=== PATIENT | female | born 1970 | race Caucasian/White ===

== ENCOUNTER 2019-12-01 13:41 | Emergency (ER) | payer SELFPAY ==
[~2019-12-01] VITALS: Ht 160 cm; Wt 76.4 kg
--- NOTE | 2019-12-01 14:03 | Diagnostic Imaging Report ---
Indication: Abdominal swelling and cirrhosis. Time of exam: 1:52 PM No prior studies are available for comparison. The heart size is normal. The pulmonary vascularity is unremarkable. The lungs are clear. No infiltrate, effusion or pneumothorax is detected. Impression: No acute cardiopulmonary process is detected. Dictated by: Dictated on workstation # [id number]
--- NOTE | 2019-12-01 14:04 | ED General ---
General Chief Complaint: General Problems/Pain Stated Complaint: ABD SWELLING Source of Information: Patient, Caregiver, Family, RN/MD, RN Notes Reviewed Exam Limitations: No Limitations History of Present Illness Date Seen by Provider: Dec 01, 2019 Time Seen by Provider: 13:45 Initial Comments This patient is a 49-year-old female that presents to the emergency department after being seen in local clinic for abdominal pain and swelling with ascites. And jaundice. Patient had labs in the clinic this returned is abnormal. Patient reportedly had a sodium level of 114. Discussed at length with patient she states that she's been a long-time drinker of beer and occasional shots with the beer. Patient noticed abdominal swelling over the past couple weeks started having discomfort this morning. We'll do medical evaluation treatment is needed Timing/Duration: 1 Week Associated Systoms: No Denies Symptoms, No Chest Pain, No Cough, No Diaphoresis, No Fever/Chills, No Headaches; Loss of Appetite; No Malaise, No Nausea/Vomiting, No Rash, No Seizure, No Shortness of Air, No Syncope, No Weakness, No Other Allergies and Home Medications Allergies Coded Allergies: No Known Drug Allergies (Unverified , 12/01/19) Patient Home Medication List Home Medication List Reviewed: Yes Review of Systems Review of Systems Constitutional: No no symptoms reported, No see HPI, No chills, No diaphoresis, No dizziness, No fever, No malaise; weakness; No weight gain, No weight loss, No other EENTM: No see HPI, No no symptoms reported, No ear discharge, No hearing loss, No ear pain, No blurred vision, No double vision, No eye pain, No tearing, No vision loss, No dental problems, No hoarseness, No mouth pain, No mouth swelling, No epistaxis, No nose congestion, No nose pain, No throat pain, No throat swelling, No other Respiratory: No no symptoms reported, No see HPI, No cough, No dyspnea on exertion, No hemoptysis, No orthopnea, No phlegm, No short of breath, No stridor, No wheezing, No other Cardiovascular: No no symptoms reported, No see HPI, No chest pain, No edema, No Hx of Intervention, No palpitations, No syncope, No vascular heart diseas, No other Gastrointestinal: No RUQ, No LUQ, No RLQ, No LLQ, No no symptoms reported; see HPI, abdominal pain; No constipation, No diarrhea, No dysphagia, No hematemesis, No heartburn, No jaundice, No loss of appetite, No melena, No nausea, No vomiting, No other Genitourinary: No no symptoms reported, No see HPI, No decreased output, No discharge, No dysuria, No frequency, No hematuria, No hesitancy, No incontinence, No nocturia, No pain, No other Musculoskeletal: No no symptoms reported, No see HPI, No back pain, No gout, No joint pain, No joint swelling, No muscle pain, No muscle stiffness, No muscle cramps, No muscle twitching, No muscle weakness, No neck pain, No other Skin: No no symptoms reported; see HPI, change in color; No change in hair/nails, No dryness, No hx of skin cancer, No lesions, No lumps, No pruritus, No rash, No other Psychiatric/Neurological: Denies No Symptoms Reported, Denies See HPI, Denies Anxiety, Denies Depressed, Denies Emotional Problems, Denies Headache, Denies Numbness, Denies Paresthesia, Denies Pre-Existing Deficit, Denies Seizure, Denies Tingling, Denies Tremors, Denies Weakness, Denies Other All Other Systems Reviewed Negative Unless Noted: Yes Past Jzikqtk-Nbjvwk-Ygzlkh Hx Patient Social History Recent Foreign Travel: No Contact w/Someone Who Travel: No Physical Exam Vital Signs Vital Signs - First Documented 12/01/19 14:00 Temp 36.1 Pulse 117 Resp 20 B/P (MAP) 117/70 (86) Pulse Ox 96 Capillary Refill : Height, Weight, BMI Height: '" Weight: lbs. oz. kg; BMI Method: General Appearance: No Apparent Distress, WD/WN, Other (patient appears to be in discomfort. Patient also appears to be jaundiced.) HEENT: PERRL/EOMI, Scleral Icterus (L) Respiratory: Chest Non Tender, Lungs Clear, Normal Breath Sounds, No Accessory Muscle Use, No Respiratory Distress Cardiovascular: Regular Rate, Rhythm, No Edema, No Gallop, No JVD, No Murmur, Normal Peripheral Pulses, Tachycardia Gastrointestinal: Normal Bowel Sounds, No Organomegaly, No Pulsatile Mass, Non Tender, Soft, Distended, Other (no significant tenderness on exam.) Neurologic/Psychiatric: Alert, Oriented x3, No Motor/Sensory Deficits, Normal Mood/Affect Skin: Warm/Dry, Jaundice Focused Exam Lactate Level 12/01/19 14:10: Lactic Acid Level 2.40*H Lactic Acid Level Laboratory Tests Test 12/01/19 14:10 Lactic Acid Level 2.40 MMOL/L (0.50-2.00) *H Progress/Results/Core Measures Suspected Sepsis SIRS Temperature: Pulse: Respiratory Rate: Laboratory Tests 12/01/19 13:55: White Blood Count 19.0H Blood Pressure / Mean: 12/01/19 14:10: Lactic Acid Level 2.40*H Laboratory Tests 12/01/19 13:55: Creatinine 0.55L, INR Comment 1.2, Platelet Count 398, Total Bilirubin 5.9H Results/Orders Lab Results Laboratory Tests Test 12/01/19 13:50 12/01/19 13:55 12/01/19 14:10 Range/Units Urine Color BROWN H Urine Clarity CLOUDY Urine pH 5.0 5-9 Urine Specific [place] 1.025 H 1.016-1.022 Urine Protein TRACE H NEGATIVE Urine Glucose (UA) TRACE H NEGATIVE Urine Ketones TRACE H NEGATIVE Urine Nitrite POSITIVE H NEGATIVE Urine Bilirubin 3+ H NEGATIVE Urine Urobilinogen >=8.0 < = 1.0 MG/DL Urine Leukocyte Esterase NEGATIVE NEGATIVE Urine RBC (Auto) NEGATIVE NEGATIVE Urine RBC NONE /HPF Urine WBC RARE /HPF Urine Squamous Epithelial Cells 10-25 H /HPF Urine Crystals NONE /LPF Urine Bacteria MODERATE H /HPF Urine Casts NONE /LPF Urine Mucus NEGATIVE /LPF Urine Culture Indicated YES Urine Opiates Screen NEGATIVE NEGATIVE Urine Oxycodone Screen NEGATIVE NEGATIVE Urine Methadone Screen NEGATIVE NEGATIVE Urine Propoxyphene Screen NEGATIVE NEGATIVE Urine Barbiturates Screen NEGATIVE NEGATIVE Ur Tricyclic Antidepressants Screen NEGATIVE NEGATIVE Urine Phencyclidine Screen NEGATIVE NEGATIVE Urine Amphetamines Screen NEGATIVE NEGATIVE Urine Methamphetamines Screen NEGATIVE NEGATIVE Urine Benzodiazepines Screen NEGATIVE NEGATIVE Urine Cocaine Screen NEGATIVE NEGATIVE Urine Cannabinoids Screen NEGATIVE NEGATIVE White Blood Count 19.0 H 4.3-11.0 10^3/uL Red Blood Count 2.86 L 4.35-5.85 10^6/uL Hemoglobin 10.6 L 11.5-16.0 G/DL Hematocrit 29 L 35-52 % Mean Corpuscular Volume 101 H 80-99 FL Mean Corpuscular Hemoglobin 37 H 25-34 PG Mean Corpuscular Hemoglobin Concent 37 H 32-36 G/DL Red Cell Distribution Width 13.2 10.0-14.5 % Platelet Count 398 130-400 10^3/uL Mean Platelet Volume 9.1 7.4-10.4 FL Immature Granulocyte % (Auto) 1 % Neutrophils (%) (Auto) 86 H 42-75 % Lymphocytes (%) (Auto) 8 L 12-44 % Monocytes (%) (Auto) 5 0-12 % Eosinophils (%) (Auto) 0 0-10 % Basophils (%) (Auto) 0 0-10 % Neutrophils # (Auto) 16.4 H 1.8-7.8 X 10^3 Lymphocytes # (Auto) 1.6 1.0-4.0 X 10^3 Monocytes # (Auto) 0.9 0.0-1.0 X 10^3 Eosinophils # (Auto) 0.0 0.0-0.3 10^3/uL Basophils # (Auto) 0.0 0.0-0.1 10^3/uL Immature Granulocyte # (Auto) 0.1 0.0-0.1 10^3/uL Neutrophils % (Manual) 84 % Lymphocytes % (Manual) 7 % Monocytes % (Manual) 3 % Eosinophils % (Manual) 0 % Basophils % (Manual) 0 % Metamyelocytes % 0 % Myelocytes % 1 % Band Neutrophils 5 % Candelario Rods . Prothrombin Time 15.4 H 12.2-14.7 SEC INR Comment 1.2 0.8-1.4 Sodium Level 114 *L 135-145 MMOL/L Potassium Level 3.5 L 3.6-5.0 MMOL/L Chloride Level 76 L 98-107 MMOL/L Carbon Dioxide Level 24 21-32 MMOL/L Anion Gap 14 5-14 MMOL/L Blood Urea Nitrogen 7 7-18 MG/DL Creatinine 0.55 L 0.60-1.30 MG/DL Estimat Glomerular Filtration Rate > 60 BUN/Creatinine Ratio 13 Glucose Level 119 H 70-105 MG/DL Calcium Level 8.8 8.5-10.1 MG/DL Corrected Calcium 9.8 8.5-10.1 MG/DL Total Bilirubin 5.9 H 0.1-1.0 MG/DL Aspartate Amino Transf (AST/SGOT) 214 H 5-34 U/L Alanine Aminotransferase (ALT/SGPT) 33 0-55 U/L Alkaline Phosphatase 433 H 40-136 U/L Total Protein 6.9 6.4-8.2 GM/DL Albumin 2.8 L 3.2-4.5 GM/DL Serum Alcohol < 10 <10 MG/DL Lactic Acid Level 2.40 *H 0.50-2.00 MMOL/L My Orders Orders - LEVI ALEX MD Ed Iv/Invasive Line Start (12/01/19 13:50) Comprehensive Metabolic Panel (12/01/19 13:50) Cbc With Automated Diff (12/01/19 13:50) Drug Screen Stat (Urine) (12/01/19 13:50) Urinalysis (12/01/19 13:50) Ekg Tracing (12/01/19 13:50) Chest 1 View Ap/Pa Only (12/01/19 13:50) Lactic Acid Analyzer (12/01/19 13:50) Blood Culture (12/01/19 13:50) Protime With Inr (12/01/19 13:50) Alcohol (12/01/19 13:52) Manual Differential (12/01/19 13:55) Ct Abdomen/Pelvis W (12/01/19 15:05) Iohexol Injection (Omnipaque 350 Mg/Ml 1 (12/01/19 15:15) Received Contrast (Hold Metformin- Contr (12/01/19 15:15) Sodium Chloride Flush (Catheter Flush Sy (12/01/19 15:15) Ns (Ivpb) (Sodium Chloride 0.9% Ivpb Bag (12/01/19 15:15) Urine Culture (12/01/19 13:50) Ceftriaxone For Iv Use (Rocephin For I (12/01/19 15:30) Blood Culture (12/01/19 14:20) Sodium Chloride 3% (Hypertonic Sodium Ch (12/01/19 15:45) Morphine Injection (Morphine Injection (12/01/19 15:55) Ondansetron Injection (Zofran Injectio (12/01/19 16:00) Medications Given in ED Current Medications Medications Dose Ordered Sig/Starla Route Start Time Stop Time Status Last Admin Dose Admin Ceftriaxone Sodium 1000 mg/ Sterile Water 10 ml @ 200 mls/hr ONCE ONCE IV 12/01/19 15:30 12/01/19 15:32 DC 12/01/19 15:55 200 MLS/HR Iohexol 100 ml ONCE ONCE IV 12/01/19 15:15 12/01/19 15:16 DC 12/01/19 15:26 100 ML Ondansetron HCl 4 mg ONCE ONCE IVP 12/01/19 16:00 12/01/19 16:01 DC 12/01/19 16:07 4 MG Sodium Chloride 10 ml NEEDED PRN IV 12/01/19 15:15 12/01/19 15:26 10 ML Sodium Chloride 100 ml ONCE ONCE IV 12/01/19 15:15 12/01/19 15:16 DC 12/01/19 15:26 80 ML Vital Signs/I&O 12/01/19 14:00 Temp 36.1 Pulse 117 Resp 20 B/P (MAP) 117/70 (86) Pulse Ox 96 Capillary Refill : Progress Note : Time: 16:43 Progress Note Patient appears to have development subversive the liver. Patient also has hyponatremia with sodium of 114. Patient has been started on hypertonic saline. I did discuss at length with Dr. Love at [facility]. He is accepted this patient for transfer ECG Initial ECG Impression Date: Dec 01, 2019 Initial ECG Impression Time: 13:58 Initial ECG Rate: 112 Initial ECG Rhythm: Normal Sinus, S.Tach Initial ECG Intervals: Normal Initial ECG Impression: Normal Departure Impression Primary Impression: Acute hyponatremia Additional Impressions: Cirrhosis of liver Leukocytosis Disposition: XFER SHT-TRM HOSP Condition: Stable Transfer Transfer Reason: Exceeds level of care Time Spoke to Accepting Phy: 16:[address] Love in [place] has accepted this patient for transfer Transfer Time: 16:45 Transfer Facility: [facility]. Method of Transfer: EMS Departure-Patient Inst. Referrals: AARON ORTIZ APRN (PCP/Family) Primary Care Physician LEVI ALEX MD Dec 01, 2019 14:04
[2019-12-01 14:35] LABS: HEMATOCRIT 29 % (35-52); HEMOGLOBIN 10.6 G/DL (11.5-16.0); MEAN CORPUSCULAR HEMOGLOBIN 37 PG (25-34); MEAN CORPUSCULAR HGB CONC 37 G/DL (32-36); MEAN CORPUSCULAR VOLUME 101 FL (80-99)
[2019-12-01 14:36] LABS: BASOPHILS % (AUTO) 0 % (0-10); EOSINOPHILS % (AUTO) 0 % (0-10); LYMPHOCYTES % (AUTO) 8 % (12-44); MEAN PLATELET VOLUME 9.1 FL (7.4-10.4); MONOCYTES % (AUTO) 5 % (0-12); NEUTROPHILS % (AUTO) 86 % (42-75); PLATELET COUNT 398 10^3/uL (130-400)
[2019-12-01 14:37] LABS: LYMPHOCYTES # (AUTO) 1.6 X 10^3 (1.0-4.0); MONOCYTES # (AUTO) 0.9 X 10^3 (0.0-1.0); NEUTROPHILS # (AUTO) 16.4 X 10^3 (1.8-7.8)
[2019-12-01 14:47] LABS: CHLORIDE 76 MMOL/L (98-107); POTASSIUM 3.5 MMOL/L (3.6-5.0); SODIUM 114 MMOL/L (135-145)
[2019-12-01 14:48] LABS: ALANINE AMINOTRANSFERASE 33 U/L (0-55); ALBUMIN 2.8 GM/DL (3.2-4.5); ALKALINE PHOSPHATASE 433 U/L (40-136); BILIRUBIN,TOTAL 5.9 MG/DL (0.1-1.0); BUN/CREATININE RATIO 13; CALCIUM 8.8 MG/DL (8.5-10.1); CARBON DIOXIDE 24 MMOL/L (21-32); CREATININE SERUM 0.55 MG/DL (0.60-1.30); GFR ESTIMATED > 60; GLUCOSE 119 MG/DL (70-105); TOTAL PROTEIN 6.9 GM/DL (6.4-8.2)
[2019-12-01 14:56] LABS: INR 1.2 (0.8-1.4); PROTHROMBIN TIME PATIENT 15.4 SEC (12.2-14.7)
[2019-12-01 15:15] LABS: AMPHETAMINE SCREEN, URINE NEGATIVE (NEGATIVE); BARBITURATE SCREEN URINE NEGATIVE (NEGATIVE); BENZODIAZEPINES SCREEN URINE NEGATIVE (NEGATIVE); CANNABINOID SCREEN, URINE NEGATIVE (NEGATIVE); COCAINE SCREEN URINE NEGATIVE (NEGATIVE); METHADONE STAT NEGATIVE (NEGATIVE); METHAMPHETAMINE SCREEN URINE S NEGATIVE (NEGATIVE); OPIATE SCREEN URINE NEGATIVE (NEGATIVE); OXYCODONE STAT NEGATIVE (NEGATIVE); PROPOXYPHENE STAT NEGATIVE (NEGATIVE); TRICYCLIC ANTIDEPRESSANTS SCRE NEGATIVE (NEGATIVE)
[2019-12-01] MEDS ORDERED: IOHEXOL 350 MG/ML 100 ML (OMNIPAQUE 350) VIAL IV ONE (15:15)
[2019-12-01] MEDS ORDERED: NS 100 ML (IVPB) BAG IV ONE (15:15)
[2019-12-01] MEDS ORDERED: CATHETER FLUSH 10 ML SYR IV PRN (15:15)
[2019-12-01] MEDS ORDERED: HOLD METFORMIN - RECEIVED CONTRAST 20 ML VIAL IV SCH (15:15)
[2019-12-01 15:19] LABS: CLARITY,URINE CLOUDY; COLOR,URINE BROWN; GLUCOSE, URINE (UA) TRACE (NEGATIVE); KETONES,URINE TRACE (NEGATIVE); NITRITE,URINE POSITIVE (NEGATIVE); PROTEIN,URINE TRACE (NEGATIVE)
[2019-12-01 15:20] LABS: BACTERIA,URINE MODERATE /HPF; BILIRUBIN,URINE 3+ (NEGATIVE); LEUKOCYTE ESTERASE ,URINE NEGATIVE (NEGATIVE); WBC,URINE RARE /HPF
[2019-12-01] MEDS ORDERED: cefTRIAXone FOR IV USE 1,000 MG in WATER (STERILE) FOR INJECTION 10 ML IV ONE (15:30)
[2019-12-01] MEDS ORDERED: SODIUM CHLORIDE 3% 500 ML IV SCH (15:45)
[2019-12-01 15:48] LABS: BAND NEUTROPHILS 5 %; BASOPHILS % (MANUAL) 0 %; EOSINOPHILS % (MANUAL) 0 %; LYMPHOCYTES % (MANUAL) 7 %; METAMYELOCYTES % 0 %; MONOCYTES % (MANUAL) 3 %; MYELOCYTES % 1 %; NEUTROPHILS % (MANUAL) 84 %
[2019-12-01] MEDS ORDERED: morphine INJ 10 MG/ML 1ML (SYR OR VIAL) IVP STA (15:55)
[2019-12-01] MEDS ORDERED: ONDANSETRON 4 MG/2 ML (SDV) Z0FRAN IVP ONE (16:00)
--- NOTE | 2019-12-01 16:08 | Diagnostic Imaging Report ---
PROCEDURE: CT abdomen and pelvis with contrast. TECHNIQUE: Multiple contiguous axial images were obtained through the abdomen and pelvis after administration of intravenous contrast. Auto Exposure Controls were utilized during the CT exam to meet ALARA standards for radiation dose reduction. All CT scans use one or more of the following dose optimizing techniques: automated exposure control, MA and/or KvP adjustment based on patient size and exam type or iterative reconstruction. DATE: December 01, 2019. COMPARISON: None. INDICATION: 49-year-old female, abdominal pain x 1 month. FINDINGS: There is atelectasis in the lung bases. The heart is not enlarged. There is no identified pericardial effusion. The liver is unremarkable in size and contour. There are sizable areas of differential attenuation, predominantly in the right lobe of the liver. The main, right, and left portal veins are patent. The gallbladder is unremarkable. There is no intrahepatic or extrahepatic bile duct dilation. The main pancreatic duct is not abnormally dilated. Unremarkable appearance of the pancreatic parenchyma. The spleen is normal in size. The adrenal glands are unremarkable. Unremarkable appearance of the renal parenchyma. The urinary collecting systems are not distended. There is no identified renal or ureteral stone. The urinary bladder is unremarkable. There is fatty wall thickening of the colon, consistent with a chronic colitis. This is involving nearly the entire length of the colon. There is abnormal wall thickening at the level of the distal stomach. There is also prominent abnormal small bowel wall thickening with one notable area at the level of the proximal jejunum on axial image 50 and adjacent sequential images. There are additional areas of abnormal small bowel wall thickening. There is no free intraperitoneal air. There is no focal drainable fluid collection. There is a large volume ascites. There are atherosclerotic calcifications. There is no identified abnormally enlarged lymph node in the abdomen or pelvis specifically meeting CT size criteria for adenopathy. There is no identified abnormally enlarged lymph node in the abdomen or pelvis which meets CT size criteria for adenopathy. There is advanced disc degenerative change at L5-S1. There is no identified acute bony abnormality. IMPRESSION: 1. Multifocal abnormal wall thickening of small bowel, most likely relating to an active enteritis. Infectious and inflammatory etiologies would be favored. 2. Abnormal wall thickening of the distal stomach which also could potentially be infectious or inflammatory in etiology. Malignancy can produce this imaging appearance although perhaps is less likely given the presence of additional intestinal tract wall thickening. 3. Diffuse fatty wall thickening of the colon, compatible with a chronic colitis. 4. Large areas of differential attenuation in the right lobe of the liver. This potentially could relate to differential areas of fat; however, further evaluation with MRI abdomen with and without intravenous contrast with in and out of phase sequences would be recommended for further assessment to evaluate for the possibility of underlying liver lesions. 5. Large volume ascites. Dictated by: Dictated on workstation # [id number]
[2019-12-01 18:55] VITALS: BP 100/64
== END 2019-12-01 18:55 | disposition short-term general hospital (02) ==
LOC: ER FS 13:42
DX: E87.1 Hypo-osmolality and hyponatremia (principal); K74.60 Unspecified cirrhosis of liver; D72.829 Elevated white blood cell count, unspecified
CPT/HCPCS: 36415; 71045; 74177; 80053; 80306; 81000; 83605; 85007; 85027; 85610; 87040; 87088; 93005; 99284; G0480; 80320

== ENCOUNTER → 2019-12-01 | Outpatient (CLI) | payer SELFPAY ==
[2019-12-01 11:49] LABS: INR 1.3 (0.8-1.4); PROTHROMBIN TIME PATIENT 16.2 SEC (12.2-14.7)
[2019-12-01 12:02] LABS: HEMOGLOBIN 10.2 G/DL (11.5-16.0); MEAN CORPUSCULAR HEMOGLOBIN 37 PG (25-34)
[2019-12-01 12:03] LABS: BASOPHILS % (AUTO) 0 % (0-10); EOSINOPHILS % (AUTO) 0 % (0-10); HEMATOCRIT 28 % (35-52); LYMPHOCYTES % (AUTO) 6 % (12-44); MEAN CORPUSCULAR HGB CONC 37 G/DL (32-36); MEAN CORPUSCULAR VOLUME 100 FL (80-99); MEAN PLATELET VOLUME 9.1 FL (7.4-10.4); MONOCYTES % (AUTO) 6 % (0-12); NEUTROPHILS % (AUTO) 88 % (42-75); PLATELET COUNT 334 10^3/uL (130-400)
[2019-12-01 12:04] LABS: LYMPHOCYTES # (AUTO) 0.9 X 10^3 (1.0-4.0); NEUTROPHILS # (AUTO) 14.8 X 10^3 (1.8-7.8)
[2019-12-01 12:33] LABS: BAND NEUTROPHILS 8 %; BASOPHILS % (MANUAL) 0 %; EOSINOPHILS % (MANUAL) 0 %; LYMPHOCYTES % (MANUAL) 2 %; MONOCYTES % (MANUAL) 3 %; NEUTROPHILS % (MANUAL) 87 %
[2019-12-01 13:11] LABS: CARBON DIOXIDE 23 MMOL/L (21-32); CHLORIDE 76 MMOL/L (98-107); POTASSIUM 3.6 MMOL/L (3.6-5.0); SODIUM 114 MMOL/L (135-145)
[2019-12-01 13:12] LABS: ALANINE AMINOTRANSFERASE 28 U/L (0-55); ALKALINE PHOSPHATASE 400 U/L (40-136); BILIRUBIN,TOTAL 5.4 MG/DL (0.1-1.0); BUN/CREATININE RATIO 13; CALCIUM 8.5 MG/DL (8.5-10.1); CREATININE SERUM 0.52 MG/DL (0.60-1.30); GFR ESTIMATED > 60; GLUCOSE 125 MG/DL (70-105); MAGNESIUM 1.6 MG/DL (1.6-2.4); TOTAL PROTEIN 6.3 GM/DL (6.4-8.2)
[2019-12-01 13:13] LABS: ALBUMIN 2.6 GM/DL (3.2-4.5)
[2019-12-01 14:58] LABS: AMMONIA 67 UMOL/L (11-32)
== END ==
LOC: LAB FS 10:51
PROVIDERS: ATTEND Nurse Practitioner Family
DX: R18.8 Other ascites (principal); R17 Unspecified jaundice; R10.84 Generalized abdominal pain; Z87.898 Personal history of other specified conditions
CPT/HCPCS: 36415; 80053; 82140; 83735; 83880; 85007; 85027; 85610

== ENCOUNTER → 2019-12-11 | Outpatient (CLI) | payer SELFPAY ==
[2019-12-11 11:01] LABS: HEMOGLOBIN 9.4 G/DL (11.5-16.0); MEAN CORPUSCULAR HEMOGLOBIN 37 PG (25-34); WHITE BLOOD COUNT 13.9 10^3/uL (4.3-11.0)
[2019-12-11 11:02] LABS: BASOPHILS # (AUTO) 0.1 10^3/uL (0.0-0.1); BASOPHILS % (AUTO) 1 % (0-10); EOSINOPHILS % (AUTO) 0 % (0-10); HEMATOCRIT 28 % (35-52); LYMPHOCYTES # (AUTO) 1.8 X 10^3 (1.0-4.0); LYMPHOCYTES % (AUTO) 13 % (12-44); MEAN CORPUSCULAR HGB CONC 34 G/DL (32-36); MEAN CORPUSCULAR VOLUME 109 FL (80-99); MEAN PLATELET VOLUME 9.1 FL (7.4-10.4); MONOCYTES # (AUTO) 0.9 X 10^3 (0.0-1.0); MONOCYTES % (AUTO) 6 % (0-12); NEUTROPHILS % (AUTO) 79 % (42-75); PLATELET COUNT 403 10^3/uL (130-400)
[2019-12-11 11:22] LABS: ALANINE AMINOTRANSFERASE 23 U/L (0-55); ALKALINE PHOSPHATASE 170 U/L (40-136); BUN/CREATININE RATIO 14; CALCIUM 9.6 MG/DL (8.5-10.1); CARBON DIOXIDE 22 MMOL/L (21-32); CHLORIDE 100 MMOL/L (98-107); CREATININE SERUM 0.63 MG/DL (0.60-1.30); GFR ESTIMATED > 60; GLUCOSE 106 MG/DL (70-105); MAGNESIUM 2.1 MG/DL (1.6-2.4); SODIUM 137 MMOL/L (135-145); TOTAL PROTEIN 6.9 GM/DL (6.4-8.2)
[2019-12-11 11:23] LABS: ALBUMIN 4.4 GM/DL (3.2-4.5)
[2019-12-11 15:06] LABS: AMMONIA 33 UMOL/L (11-32)
== END ==
LOC: LAB FS 10:29
PROVIDERS: ATTEND Nurse Practitioner Family
DX: K70.31 Alcoholic cirrhosis of liver with ascites (principal); K26.9 Duodenal ulcer, unspecified as acute or chronic, without hemorrhage or perforation
CPT/HCPCS: 36415; 80053; 82140; 83735; 85025

== ENCOUNTER 2020-01-06 15:50 | Outpatient (CLI) | payer SELFPAY ==
[~2020-01-06] VITALS: Ht 160 cm; Wt 76.4 kg
--- NOTE | 2020-01-06 16:04 | NUR ---
ARRIVED AT [address] HIGUERA IN ROOM FOR PROCEDURE AT 1604. PROCEDURE SITE RIGHT LOWER ABD
--- NOTE | 2020-01-06 16:45 | NUR ---
REPORT FROM DR HIGUERA THAT 1700 CC PARACENTESIS FLUID OBTAINED TO PLEURX BOTTLES. STATES NO ACTIVE DRAINAGE TO SECOND PLEURX BOTTLE AT THIS TIME. INSTRUCTED TO HAVE PT REPOSITION TO INCREASE LIKELIHOOD OF ADDITIONAL DRAINAGE, AND TO PUT PARACENTESIS CATHETER TO DEPENDANT DRAINAGE BAG IF NO RESULTS WITH PLEURX BOTTLE.
--- NOTE | 2020-01-06 16:50 | NUR ---
PARACENTESIS CATHETER SECURED WITH OPSITE DRESSING. NO DRAINAGE TO PLEURX BOTTLE. ASSISTED PT TO LIE ON RIGHT, THEN LEFT SIDES, HEAD OF BED RAISED AND LOWERED, AND PT ASSISTED TO SIT UP ON SIDE OF BED WITH NO RESULTING FLUID TO PLEURX BOTTLE. PARACENTESIS CATHETER THEN PUT TO DD BAG. SITE REMAINS SECURED WITH OPSITE. PT STATES HER PREVIOUS PARACENTESIS IN [place] RESULTED IN OVER 3 LITERS OF FLUID DRAINED, BUT PT STATES AT THAT TIME "I COULD HARDLY BREATHE AND MY STOMACH WAS WAY BIGGER THAN IT IS NOW."
--- NOTE | 2020-01-06 17:00 | NUR ---
DR HIGUERA CONTACTED BY Cuca CHIN RN. REPORT GIVEN ON PARACENTESIS OUTPUT/STATUS. INSTRUCTED BY DR HIGUERA TO WALK PT IN [place].
--- NOTE | 2020-01-06 17:12 | Progress Note-Post Operative ---
Post-Operative Progess Note Surgeon (s)/Private Inquiry Agent (s) Surgeon PENNY HIGUERA DO Private Inquiry Agent: none Pre-Operative Diagnosis Cirrhosis, Ascites Post-Operative Diagnosis same Procedure & Operative Findings Date of Procedure 01/06/20 Procedure Performed/Findings After informed consent was obtained, the patient was in the Same day surgery room, timeout was performed and then the patient was sterilely prepped and draped in normal fashion. She had already been previously marked by the ultrasound and then I first infiltrated the skin with local; next I made a small stab incision with #11 blade and then advanced the safe-T needle at the spot that ultrasound had marked; gently into the abdomen, able to push through and then got a good flash of ascitic fluid and then pushed the catheter in and pulled the needle out. Catheter went in easily and then hooked this up to vacutainer and got out yellowish ascitic fluid. Scant bleeding at first as the needle was inserted, but then none as it drained approximately 1700ml of ascitic fluid. As the nurse was trying to get more fluid to drain by rolling pt side to side, sitting up, hooking up to gravity drainage and then finally having her walk; the pt inadvertantly removed the catheter. At this point elected to leave it out and the area was cleaned and dried and bandaged. Sponge, instrument and needle count correct at the end of the case. Anesthesia Type Local lidocaine Estimated Blood Loss Estimated blood loss (mL): scant Specimens/Packing Specimens Removed ascitic fluid PENNY HIGUERA DO Jan 06, 2020 17:12
--- NOTE | 2020-01-06 17:15 | NUR ---
PT AMB IN [place] WITH ASSIST FROM Cuca HCIN RN, WITH NO ABDOMINAL FLUID OBTAINED IN PARACENTESIS DEPENDANT DRAINAGE BAG. REPORT FROM Cuca CHIN RN, THAT ON RETURN TO ROOM, PT INADVERTENTLY DISLODGED PARACENTESIS CATHETER WHEN GETTING BACK INTO BED. Cuca CHIN RN CONTACTED DR HIGUERA, REPORT GIVEN. INSTRUCTED BY DR HIGUERA TO APPLY SKIN AFFIX TO PROCEDURE SITE, AND PROCEED WITH DISMISSAL.
--- NOTE | 2020-01-06 17:16 | Discharge Inst-Surgical ---
Discharge Inst-Surgical Depart Medication/Instructions New, Converted or Re-Newed RX: Other Patient Instructions Follow up Appt: Make appointment for 1 week. [phone] Instructions: No strenuous activity. May shower in 24 hours, no tub bath or soaking. Skin/Wound Care: May remove bandages in am. You need to leave the Dermabond on incision it will fall off on it's own. Symptoms to Report: Appetite Changes, Extremity Discoloration, Numbness/Tingling, Swelling Increased, Bleeding Excessive, Eyesight Changes, Pain Increased, Urine Color Change, Constipation(Persistent), Fever over 101 degree F, Pain/Pressure in chest, Urinating Difficulty, Cough Up/Vomit Blood, Heart Beat Irreg/Pounding, Pain/Pressure in jaw, Cramps in feet or legs, Lightheadedness, Pain/Pressure in shoulder, Diarrhea(Persistent), Memory Changes Suddenly, Questions/Concerns, Weight gain consecutive days, Dizziness/Fainting, Nausea/Vomiting, Shortness of Breath, Weight gain over 2 pounds If questions or concerns contact your physician Or seek help at emergency department. Activity Activity as Tolerated: Yes Activity Instructions: Avoid Stress to Incision Driving Instructions: No Driving/Refer to Dr. Hernandez Discharge Diet: No Restrictions Diet After 24 Hours: Clear Liquid if Nauseous If Any Problems/Questions/Issu: Contact Your Physician, Go to Emergency Room Skin/Wound Care Infection Signs and Symptoms: Increased Redness, Foul Odor of Wound, Increased Drainage, Skin Itchy or Has a Rash, Increased Swelling, Temperature Above 101 F Bathing Instructions: Shower Stitches/Alfred/Dermabond Dis: PENNY Cohen DO Jan 06, 2020 17:16
[2020-01-06 17:30] VITALS: BP 101/73
--- NOTE | 2020-01-06 17:30 | NUR ---
APPROX MAZIN SIZED SPOT OF SEROSANGUINOUS DRAINAGE ON FOLDED 4X4 GAUZE APPLIED TO SITE IMMEDIATELY AFTER PARACENTESIS CATHETER WAS PULLED OUT. NO ACTIVE DRAINAGE. SKIN AFFIX APPLIED INSTRUCTED AND PT DISMISSED PER WC TO PRIVATE VEHICLE WITH STAFF AND 1 AND FRIEND. TEMP 36.5, PULSE 100, R 20, B/P 106/70, SAO2 96% RA
== END 2020-01-06 17:30 | disposition home or self-care (01) ==
LOC: SDC 15:50
PROVIDERS: ATTEND Pediatrics
DX: K70.30 Alcoholic cirrhosis of liver without ascites (principal)
CPT/HCPCS: 49082

== ENCOUNTER 2020-01-14 12:04 | Outpatient (CLI) | payer OTHER ==
[~2020-01-14] VITALS: Ht 160 cm; Wt 65.5 kg
[2020-01-14 12:10] VITALS: BP 106/68
[2020-01-14] MEDS ORDERED: ALBUMIN 25% 25 GM/100 ML 100 ML IV ONE (13:30)
--- NOTE | 2020-01-14 13:48 | Diagnostic Imaging Report ---
Indication: Ascites. Sonographic guidance was provided for Dr. Bower for paracentesis. Multiple images demonstrate a large amount of free fluid in the right lower and left lower quadrants. Small amount is identified in right upper quadrant with moderate fluid in the left upper quadrant. IMPRESSION: Sonography guidance for paracentesis for Dr. Bower. Dictated by: Dictated on workstation # [id number]
--- NOTE | 2020-01-14 15:01 | NUR ---
PATIENT TO FOLLOW UP WITH DR. HIGUERA ON 01/22/20 AT 2:15PM
--- NOTE | 2020-01-14 16:19 | Progress Note-Post Operative ---
Post-Operative Progess Note Surgeon (s)/Drafter Directional Survey (s) Surgeon PENNY HIGEURA DO Drafter Directional Survey: none Pre-Operative Diagnosis Cirrhosis, Ascites Post-Operative Diagnosis same Procedure & Operative Findings Date of Procedure 01/14/20 Procedure Performed/Findings After informed consent was obtained, the patient was in the Same day surgery room, timeout was performed and then the patient was sterilely prepped and draped in normal fashion. She had already been previously marked by the ultrasound decided to try the left side today. I infiltrated the skin with local; next I made a small stab incision with #11 blade and then advanced the safe-T needle at the spot that ultrasound had marked; gently into the abdomen, able to push through and then got a good flash of ascitic fluid and then pushed the catheter in and pulled the needle out. Catheter went in e asily and then hooked this up to vacutainer and got out yellowish ascitic fluid. No bleeding seen as the needle was inserted, but then none as it drained approximately 6200ml of ascitic fluid. The nurse tried to get more fluid to drain by rolling pt side to side, sitting up, hooking up to gravity drainage and then finally having her walk. At this point the area was cleaned, dried and bandaged. Closed the incision with skin affix. Sponge, instrument and needle count correct at the end of the case. Anesthesia Type local lidocaine Estimated Blood Loss Estimated blood loss (mL): scant Specimens/Packing Specimens Removed 6200ml ascitic fluid PENNY HIGUERA DO Jan 14, 2020 16:19
--- NOTE | 2020-01-14 16:20 | Discharge Inst-Surgical ---
Discharge Inst-Surgical Depart Medication/Instructions Patient Instructions Follow up Appt: Make appointment for 1 week. [phone] Instructions: No lifting greater than 20 pounds. No strenuous activity. May shower in 24 hours, no tub bath or soaking. Use incentive spirometer at home as directed. No Smoking Skin/Wound Care: May remove bandages in am. You need to leave the Dermabond on incision it will fall off on it's own. Symptoms to Report: Appetite Changes, Extremity Discoloration, Numbness/Tingling, Swelling Increased, Bleeding Excessive, Eyesight Changes, Pain Increased, Urine Color Change, Constipation(Persistent), Fever over 101 degree F, Pain/Pressure in chest, Urinating Difficulty, Cough Up/Vomit Blood, Heart Beat Irreg/Pounding, Pain/Pressure in jaw, Cramps in feet or legs, Lightheadedness, Pain/Pressure in shoulder, Diarrhea(Persistent), Memory Changes Suddenly, Questions/Concerns, Weight gain consecutive days, Dizziness/Fainting, Nausea/Vomiting, Shortness of Breath, Weight gain over 2 pounds If questions or concerns contact your physician Or seek help at emergency department. Activity Activity as Tolerated: Yes Activity Instructions: Avoid Stress to Incision Driving Instructions: No Driving/Refer to Dr. Hernandez Discharge Diet: No Restrictions If Any Problems/Questions/Issu: Contact Your Physician, Go to Emergency Room Skin/Wound Care Infection Signs and Symptoms: Increased Redness, Foul Odor of Wound, Increased Drainage, Skin Itchy or Has a Rash, Increased Swelling, Temperature Above 101 F Bathing Instructions: PENNY Fortune DO Jan 14, 2020 16:20
== END 2020-01-14 15:55 | disposition home or self-care (01) ==
LOC: SDC 12:04
PROVIDERS: ATTEND Surgery
DX: Z01.812 Encounter for preprocedural laboratory examination (principal); K70.31 Alcoholic cirrhosis of liver with ascites
CPT/HCPCS: 49082; 76942; 96365; 96366

== ENCOUNTER → 2020-02-04 | Outpatient (CLI) | payer OTHER ==
[~2020-02-04] VITALS: Ht 160 cm; Wt 65.5 kg
[~2020-02-04] MED LIST: ALBUMIN 25% 25 GM/100 ML 100 ML IV ONE
--- NOTE | 2020-02-04 14:46 | Diagnostic Imaging Report ---
INDICATION: Ascites. Sonographic guidance was provided for Dr. Rene for performance of paracentesis. Multiple images demonstrate moderate to large free fluid in the right and left lower quadrants. There is moderate free fluid in the right and left upper quadrants. IMPRESSION: Moderate ascites. Guidance was provided for Dr. Rene for paracentesis. Dictated by: Dictated on workstation # [id number]
--- NOTE | 2020-02-04 22:04 | OPERATIVE REPORT ---
DATE OF SERVICE: 02/04/2020 PREOPERATIVE DIAGNOSIS: Symptomatic ascites. POSTOPERATIVE DIAGNOSIS: Symptomatic ascites PROCEDURE: Ultrasound-guided paracentesis. SURGEON: Jorgito Rene DO ANESTHESIA: 1% lidocaine. ESTIMATED BLOOD LOSS: Minimal. COMPLICATIONS: None. INDICATIONS: The patient is a 49-year-old female with symptomatic ascites. She has required previous paracentesis. She understands risks and benefits of procedure and wished to proceed with procedure. Consent was signed in the chart. DESCRIPTION OF PROCEDURE: The patient was taken to the procedure room. Ultrasound was used to isolate the largest pocket for placement of Cagk-R-Ankvlggh needle and catheter. The area was then prepped and draped and timeout was performed. Local anesthetic was infiltrated and 11 blade scalpel was used to make a small skin incision. Swkt-K-Vpculcxc needle and catheter were then advanced until straw-colored fluid was withdrawn. The catheter was advanced and the needle was removed. A total of 7200 mL of straw-colored fluid was withdrawn. Once done draining, the catheter was removed and sterile bandage was applied. The patient tolerated procedure well without any complications. Job ID: [id number] DocumentID: [id number] Dictated Date: 02/04/2020 15:45:26 Floor Space Allocator Date: 02/04/2020 22:04:02 Dictated By: JORGITO RENE DO
== END ==
LOC: RAD 12:22
PROVIDERS: ATTEND Surgery
DX: K70.31 Alcoholic cirrhosis of liver with ascites (principal)
CPT/HCPCS: 49083; A7048

== ENCOUNTER 2020-02-25 09:58 | Outpatient (CLI) | payer MEDICAID ==
[~2020-02-25] VITALS: Ht 152 cm; Wt 65.5 kg
[2020-02-25 10:15] VITALS: BP 94/68
--- NOTE | 2020-02-25 10:20 | Progress Note-Post Operative ---
Post-Operative Progess Note Surgeon (s)/Wraparound Facilitator (s) Surgeon PENNY HIGUERA DO Wraparound Facilitator: CASSY Horton Pre-Operative Diagnosis Cirrhosis, Ascites Post-Operative Diagnosis same Procedure & Operative Findings Date of Procedure 02/25/20 Procedure Performed/Findings INDICATIONS: The patient is a 50-year-old female with symptomatic ascites. She has required previous paracentesis. She understands risks and benefits of procedure and wished to proceed with procedure. Consent was signed in the chart. DESCRIPTION OF PROCEDURE: The patient was taken to the procedure room. Ultrasound was used to isolate the largest pocket for placement of Umbb-C-Zpcqacfe needle and catheter. The area was then prepped and draped and timeout was performed. Local anesthetic was infiltrated and 11 blade scalpel was used to make a small skin incision. Neln-M-Pqpnyonr needle and catheter were then advanced until straw-colored fluid was withdrawn. The catheter was advanced and the needle was removed. A total of 8150 mL of straw-colored fluid was withdrawn. Once done draining, the catheter was removed and sterile bandage was applied. Pt was transfused with some albumin per protocol. The patient tolerated procedure well without any complica tions. Anesthesia Type local lidocaine Estimated Blood Loss Estimated blood loss (mL): scant Specimens/Packing Specimens Removed 8150ml of ascitic fluid PENNY HIGUERA DO Feb 25, 2020 10:20
--- NOTE | 2020-02-25 10:38 | Diagnostic Imaging Report ---
INDICATION: Ascites. Sonographic guidance was provided for Dr. Bower for performance of a paracentesis. Images demonstrate large volume ascites in the right lower quadrant and left lower quadrant. IMPRESSION: Sonographic guidance for Dr. Bower for performance of a paracentesis. Dictated by: Dictated on workstation # [id number]
[2020-02-25] MEDS ORDERED: ALBUMIN 25% 25 GM/100 ML 100 ML IV ONE (12:45)
[2020-02-26] MEDS ORDERED: OXC5T PO ×2 (16:31→16:52)
== END 2020-02-25 15:25 ==
LOC: RAD 09:58
PROVIDERS: ATTEND Surgery
DX: K74.60 Unspecified cirrhosis of liver (principal); R18.8 Other ascites
CPT/HCPCS: 49082; 76942; 96365; 96366

== ENCOUNTER 2020-02-26 15:20 | Emergency (ER) | payer MEDICAID ==
[~2020-02-26] VITALS: Ht 160 cm; Wt 52.0 kg
--- NOTE | 2020-02-26 15:28 | ED Fall/Injury ---
General Chief Complaint: Upper Extremity Stated Complaint: FELL,RT ARM PAIN Source: patient History of Present Illness Date Seen by Provider: Feb 26, 2020 Time Seen by Provider: 15:28 Initial Comments 50-year-old female presenting after having tripped over her house shoes when she was out shopping. She had landed on her right arm underneath her and heard and felt a pop in the shoulder area. She has severe pain now. It is worse with any movement or palpation of her upper shoulder and arm. She denies any numbness or tingling. She did not hit her head or lose consciousness. She has not had problems with the shoulder and arm in the past. Patient states she is on Hospice due to her liver disease. Occurred: just prior to arrival Severity: severe Injuries/Pain Location: upper extremity (right shoulder/proximal humerus) Context: tripped (on her house shoes) Loss of Consciousness: no loss of consciousness Modifying Factors: Improves With Immobilization; Worse With Jarring, Worse With Movement Associated Symptoms (Fall): No Abdominal Pain, No Chest Pain, No Confusion, No Dizziness, No Headache, No Lightheadedness, No Muscle Spasms, No Nausea/Vomiting, No Neck Pain, No Ringing in Ears, No Seizures, No Shortness of Air, No Slurred Speech, No Trouble Walking, No Vision Changes Allergies and Home Medications Allergies Coded Allergies: No Known Drug Allergies (Unverified , 12/01/19) Home Medications Oxycodone Hcl 5 Mg Tab, 5 MG PO Q8H PRN for PAIN-SEVERE (8-10) Prescribed by: ALEX PEGUERO on 02/26/20 5034 Patient Home Medication List Home Medication List Reviewed: Yes Review of Systems Review of Systems Constitutional: No chills, No fever Eyes: No Symptoms Reported Ears, Nose, Mouth, Throat: no symptoms reported Respiratory: no symptoms reported Cardiovascular: no symptoms reported Gastrointestinal: no symptoms reported Musculoskeletal: see HPI Skin: other (chronic jaundice) Psychiatric/Neurological: Denies Numbness, Denies Paresthesia Past Ffdkfgg-Ncmvje-Focayx Hx Past Med/Social Hx: Reviewed Nursing Past Med/Soc Hx Patient Social History Drug of Choice: marijuana 2nd Hand Smoke Exposure: Yes Recent Hopitalizations: No Seasonal Allergies Seasonal Allergies: No Past Medical History Surgeries: No Respiratory: No Cardiac: No Neurological: No Genitourinary: No Gastrointestinal: No Musculoskeletal: No Endocrine: No HEENT: No Cancer: No Psychosocial: No Integumentary: No Blood Disorders: No Adverse Reaction/Blood Tranf: No Physical Exam Vital Signs Vital Signs - First Documented 02/26/20 15:53 Temp 36.4 Pulse 107 Resp 16 B/P (MAP) 118/101 (107) Pulse Ox 100 O2 Delivery Room Air Capillary Refill : Height, Weight, BMI Height: '" Weight: lbs. oz. kg; 25.58 BMI Method: General Appearance: WD/WN, moderate distress Neck: non-tender, supple Cardiovascular: normal peripheral pulses, regular rate, rhythm Respiratory: chest non-tender, lungs clear, normal breath sounds Extremities: normal capillary refill, other (NVT intact to her hand and lower part of right arm. Pain with any attempted movement of right shoulder and with palpation of R shoulder. ) Neurologic/Psychiatric: alert, oriented x 3 Skin: warm/dry [place] Coma Score Best Eye Response: (4) Open Spontaneously Best Verbal Response: (5) Oriented Best Motor Response: (6) Obeys Commands Bryan Total: 15 Progress/Results/Core Measures Results/Orders My Orders Orders - ALEX PEGUERO MD Shoulder 3 View Right (02/26/20 15:44) Ice: Apply To Affected Area (02/26/20 15:45) Shoulder Immoblizer (02/26/20 16:12) Oxycodone Immediate Rel Tablet (Oxyir Ta (02/26/20 16:20) Vital Signs/I&O 02/26/20 15:53 Temp 36.4 Pulse 107 Resp 16 B/P (MAP) 118/101 (107) Pulse Ox 100 O2 Delivery Room Air Progress Progress Note #1: Progress Note ice and elevate arm. obtain xrays of the right shoulder Progress Note #2: Progress Note comminuted fracture of proximal humerus right shoulder and greater tuberosity. No displacement. Treat with immobilizer and follow up with ortho. Oxycodone for pain control as well as ice, rest, elevate and shoulder immobilizer. Diagnostic Imaging Diagonstic Imaging: Xray Plain Films/CT/US/NM/MRI: other (shoulder) Comments NAME: [facility] REC#: [id number] PT STATUS: REG ER : 1970 PHYSICIAN: ALEX PEGUERO MD ADMIT DATE: 02/26/20/ER FS Draft Date of Exam:02/26/20 SHOULDER 3 VIEW RIGHT INDICATION: Fall. Right shoulder pain. COMPARISON: None FINDINGS: Three radiographic views of the right shoulder were obtained and demonstrate comminuted fracture of the humeral head with extension into the surgical neck and proximal humeral shaft. There is no significant displacement of fracture fragments. Glenohumeral and acromioclavicular joint spaces appear maintained. No unexpected radiopaque foreign bodies are seen. Included portions of the right hemithorax are clear. IMPRESSION: 1. Acute comminuted nondisplaced fracture of proximal right humerus. Dictated on workstation # [id number] Dict: 02/26/20 1604 Trans: 02/26/20 1607 [facility] [id number] Interpreted by: AMBER THOMPSON MD Electronically signed by: Departure Impression Primary Impression: Fracture of humerus, proximal, right, closed Qualified Codes: S42.294A - Other nondisplaced fracture of upper end of right humerus, initial encounter for closed fracture Additional Impression: Fall Qualified Codes: W19.XXXA - Unspecified fall, initial encounter Disposition: HOME, SELF-CARE Condition: Stable Departure-Patient Inst. Decision time for Depature: 16:32 Referrals: JASMIN VALENTIN MD (PCP/Family) Primary Care Physician Patient Instructions: Shoulder Fracture (DC), Preventing Falls Add. Discharge Instructions: Use shoulder immobilizer at all times until you are seen by Orthopedics for follow up. Call Orthopedics for follow up appointment within the next week. ELDER Magana works with Dr. Gallo and you can call [phone] to schedule an appointment to be seen here in [place]. Ice 20-30 minutes every few hours as needed for pain. Try to sleep with head of bed elevated 30-45 degrees to help with swelling and pain. Make sure you are taking a laxative to help keep your stools soft and regular while taking the narcotic pain medicine. All discharge instructions reviewed with patient and/or family. Voiced understanding. Scripts Oxycodone Hcl (OXYIR TABLET) 5 Mg Tab 5 MG PO Q8H PRN for PAIN-SEVERE (8-10) for 5 Days, #15 TAB 0 Refills Prov: ALEX PEGUERO MD 02/26/20 Images Extremities-Upper 1 - Severe, Tenderness (severe pain with palpation or attempted movement of right shoulder and proximal humerus) ALEX PEGUERO MD Feb 26, 2020 15:28
[2020-02-26 15:53] VITALS: BP 118/101
--- NOTE | 2020-02-26 16:07 | Diagnostic Imaging Report ---
INDICATION: Fall. Right shoulder pain. COMPARISON: None FINDINGS: Three radiographic views of the right shoulder were obtained and demonstrate comminuted fracture of the humeral head with extension into the surgical neck and proximal humeral shaft. There is no significant displacement of fracture fragments. Glenohumeral and acromioclavicular joint spaces appear maintained. No unexpected radiopaque foreign bodies are seen. Included portions of the right hemithorax are clear. IMPRESSION: 1. Acute comminuted nondisplaced fracture of proximal right humerus. Dictated by: Dictated on workstation # [id number]
[2020-02-26] MEDS ORDERED: OXC5T PO ×2 (16:31→16:52)
== END 2020-02-26 16:39 | disposition home or self-care (01) ==
LOC: EDUNIT# 15:20 → ER FS 15:22
DX: S42.294A Other nondisplaced fracture of upper end of right humerus, initial encounter for closed fracture (principal); Z77.22 Contact with and (suspected) exposure to environmental tobacco smoke (acute) (chronic); W01.0XXA Fall on same level from slipping, tripping and stumbling without subsequent striking against object, initial encounter
CPT/HCPCS: 73030

== ENCOUNTER → 2020-03-15 | Outpatient (CLI) | payer MEDICAID ==
[~2020-03-15] MED LIST changes: -ALBUMIN 25% 25 GM/100 ML 100 ML IV ONE; +OXC5T PO
--- NOTE | 2020-03-15 10:30 | Diagnostic Imaging Report ---
INDICATION: Right shoulder injury followup. AP, oblique, and transscapular views of the right shoulder are obtained COMPARISON: 02/26/2020 The humeral neck fracture is unchanged in alignment compared to the prior study. There is minimal change compared to the prior study. The glenohumeral joint shows no dislocation. AC joint is intact. IMPRESSION: Stable alignment of right humeral neck fracture with no acute change compared to the previous study. Dictated by: Dictated on workstation # [id number]
== END ==
LOC: RAD FS 09:52
PROVIDERS: ATTEND Nurse Practitioner
DX: S42.231D 3-part fracture of surgical neck of right humerus, subsequent encounter for fracture with routine healing (principal); X58.XXXD Exposure to other specified factors, subsequent encounter
CPT/HCPCS: 73030

== ENCOUNTER → 2020-03-30 | Outpatient (CLI) | payer MEDICAID ==
[~2020-03-30] VITALS: Ht 163 cm; Wt 58.7 kg
[~2020-03-30] MED LIST changes: +ALBUMIN 25% 25 GM/100 ML 100 ML IV ONE
[2020-03-30 10:15] VITALS: BP 87/62
--- NOTE | 2020-03-30 12:51 | Diagnostic Imaging Report ---
EXAMINATION: Ultrasound guidance needle placement INDICATION: Ascites Ultrasound assistance was provided for Dr. Rd Bower. A fluid collection was identified in the left lower quadrant. The skin was marked over the fluid collection for the paracentesis to be performed by Dr. Bower. IMPRESSION: There has been a successful ultrasound guided localization of a fluid collection in the left lower quadrant. Paracentesis is pending. Dictated by: Dictated on workstation # [id number]
--- NOTE | 2020-03-30 13:37 | Progress Note-Post Operative ---
Post-Operative Progess Note Surgeon (s)/Communications Lead (s) Surgeon PENNY HIGUERA DO Communications Lead: CASSY Horton Pre-Operative Diagnosis Cirrhosis, Ascites Post-Operative Diagnosis same Procedure & Operative Findings Date of Procedure 03/30/20 Procedure Performed/Findings INDICATIONS: The patient is a 50-year-old female with symptomatic ascites. She has required previous paracentesis. She understands risks and benefits of procedure and wished to proceed with procedure. Consent was signed in the chart. DESCRIPTION OF PROCEDURE: The patient was taken to the procedure room. Ultrasound was used to isolate the largest pocket for placement of Axng-Z-Hodsqxhz needle and catheter. The area was then prepped and draped and timeout was performed. Local anesthetic was infiltrated and 11 blade scalpel was used to make a small skin incision. Gnrm-M-Hczdndjl needle and catheter were then advanced until straw-colored fluid was withdrawn. The catheter was advanced and the needle was removed. A total of 7000 mL of straw-colored fluid was withdrawn. Once done draining, the catheter was removed and sterile bandage was applied. Pt was transfused with some albumin per protocol. The patient tolerated procedure well without any complica tions. Anesthesia Type local lidocaine Estimated Blood Loss Estimated blood loss (mL): scant Specimens/Packing Specimens Removed 7000ml of ascitic fluid PENNY HIGUERA DO Mar 30, 2020 13:37
== END ==
LOC: RAD 10:02
PROVIDERS: ATTEND Surgery
DX: R18.8 Other ascites (principal)
CPT/HCPCS: 49082; 76942; 96365; 96366

== ENCOUNTER → 2020-04-05 | Outpatient (CLI) | payer MEDICAID ==
[~2020-04-05] MED LIST changes: -ALBUMIN 25% 25 GM/100 ML 100 ML IV ONE
--- NOTE | 2020-04-05 13:22 | Diagnostic Imaging Report ---
INDICATION: Followup of right shoulder fracture. Comparison with 03/15/2020. FINDINGS: The humeral neck fracture remains in good alignment. There has been some early bony callus formation. Fracture line is still visible. The glenohumeral joints in good alignment. Humeral tuberosity remains in good position with minimal displacement. The articulating surfaces are smooth. AC joint remains in good alignment. IMPRESSION: Minimally displaced fracture of the humeral shaft and tuberosity with early healing noted. Dictated by: Dictated on workstation # [id number]
== END ==
LOC: RAD FS 10:13
PROVIDERS: ATTEND Nurse Practitioner
DX: S42.231D 3-part fracture of surgical neck of right humerus, subsequent encounter for fracture with routine healing (principal)
CPT/HCPCS: 73030

== ENCOUNTER 2020-04-19 05:35 | Outpatient (CLI) | payer MEDICAID ==
[~2020-04-19] VITALS: Ht 160 cm; Wt 57.7 kg
[2020-04-19] MEDS ORDERED: FURO40TA4 PO (10:04)
[2020-04-19] MEDS ORDERED: OXYC5TAB PO (10:04)
[2020-04-19] MEDS ORDERED: TRAM50TA3 PO (10:04)
[2020-04-19] MEDS ORDERED: CETI10TA49 PO (10:04)
[2020-04-19] MEDS ORDERED: LACT10SO3 PO (10:04)
[2020-04-19] MEDS ORDERED: MELA5TAB14 PO (10:04)
[2020-04-19] MEDS ORDERED: OMEP20CA18 PO (10:04)
== END 2020-04-19 10:09 | disposition home or self-care (01) ==
LOC: PREOP 05:35
PROVIDERS: ATTEND Surgery
DX: Z01.818 Encounter for other preprocedural examination (principal)

== ENCOUNTER 2020-04-21 10:28 | Day surgery (SDC) | payer MEDICAID ==
[~2020-04-21] VITALS: Ht 160 cm; Wt 57.7 kg
[2020-04-21] VITALS (7 sets, daily range): BP systolic 76–98; BP diastolic 50–56
[~2020-04-21 10:28] MED LIST changes: +CETI10TA49 PO; +FURO40TA4 PO; +LACT10SO3 PO; +MELA5TAB14 PO; +OMEP20CA18 PO; +OXYC5TAB PO; +TRAM50TA3 PO
[2020-04-21] MEDS ORDERED: ceFAZolin 2 GM IV Premixed 50 ML IV ONE (10:45)
[2020-04-21] MEDS ORDERED: LACTATED RINGERS 1,000 ML IV PRN (11:00)
--- NOTE | 2020-04-21 11:45 | Progress Note-Pre Operative ---
Pre-Operative Progress Note H&P Reviewed The H&P was reviewed, patient examined and no changes noted. Time Seen by Provider: 11:43 Date H&P Reviewed: Apr 21, 2020 Time H&P Reviewed: 11:43 Pre-Operative Diagnosis: End stage liver disease, Ascites, Alcoholic Cirrhosis PENNY HIGUERA DO Apr 21, 2020 11:45
[2020-04-21] MEDS ORDERED: MIDAZOLAM 2 MG/2 ML (VERSED) VIAL ONE (12:22)
[2020-04-21] MEDS ORDERED: PROPOFOL INJECTION 50 ML IV ONE (12:22)
[2020-04-21] MEDS ORDERED: LIDOCAINE PF 2% 5 ML (XYLOCAINE) VIAL ONE (13:10)
--- NOTE | 2020-04-21 13:18 | Progress Note-Post Operative ---
Post-Operative Progess Note Surgeon (s)/Asset Protection Greeter (s) Surgeon PENNY HIGUERA DO Asset Protection Greeter: SCOTT Pruett Pre-Operative Diagnosis End stage liver disease, Ascites, Alcoholic Cirrhosis Post-Operative Diagnosis same Procedure & Operative Findings Date of Procedure 04/21/20 Procedure Performed/Findings Pleur-X catheter placement with US guidance Anesthesia Type IV sedation by SACK CLEANING HAND Estimated Blood Loss Estimated blood loss (mL): scant Specimens/Packing Specimens Removed ascitic fluid PENNY HIGUERA DO Apr 21, 2020 13:18
--- NOTE | 2020-04-21 13:20 | Discharge Inst-Surgical ---
Discharge Inst-Surgical Depart Medication/Instructions New, Converted or Re-Newed RX: Other (take home medss) Patient Instructions Follow up Appt: Make appointment for 1 week. [phone] Instructions: No strenuous activity. May shower in 24 hours, no tub bath or soaking. Use incentive spirometer at home as directed. No Smoking Skin/Wound Care: May remove bandages in am. You need to leave the Dermabond on incision it will fall off on it's own. Symptoms to Report: Appetite Changes, Extremity Discoloration, Numbness/Tingling, Swelling Increased, Bleeding Excessive, Eyesight Changes, Pain Increased, Urine Color C hange, Constipation(Persistent), Fever over 101 degree F, Pain/Pressure in chest, Urinating Difficulty, Cough Up/Vomit Blood, Heart Beat Irreg/Pounding, Pain/Pressure in jaw, Cramps in feet or legs, Lightheadedness, Pain/Pressure in shoulder, Diarrhea(Persistent), Memory Changes Suddenly, Questions/Concerns, Weight gain consecutive days, Dizziness/Fainting, Nausea/Vomiting, Shortness of Breath, Weight gain over 2 pounds If questions or concerns contact your physician Or seek help at emergency department. Activity Activity as Tolerated: Yes Activity Instructions: Avoid Pulling & Pushing Driving Instructions: No Driving/Refer to Dr. Hernandez Discharge Diet: Low Sodium Diet If Any Problems/Questions/Issu: Contact Your Physician, Go to Emergency Room Skin/Wound Care Infection Signs and Symptoms: Increased Redness, Foul Odor of Wound, Increased Drainage, Skin Itchy or Has a Rash, Increased Swelling, Temperature Above 101 F Bathing Instructions: Sponge Stitches/Alfred/Dermabond Dis: Care of PENNY Christian DO Apr 21, 2020 13:20
[2020-04-21] MEDS ORDERED: MEPERIDINE (DEMEROL) INJ 50 MG/ML IVP ONE (13:30)
[2020-04-21] MEDS ORDERED: morphine INJ 10 MG/ML 1ML (SYR OR VIAL) IVP ONE (13:30)
[2020-04-21] MEDS ORDERED: ONDANSETRON 4 MG/2 ML (SDV) Z0FRAN IVP PRN (13:30)
[2020-04-21] MEDS ORDERED: ALBUMIN 25% 25 GM/100 ML 100 ML IV ONE (14:00)
--- NOTE | 2020-04-21 14:30 | Anesthesia-General Post-Op ---
MAC Patient Condition Mental Status/LOC: Same as Preop Cardiovascular: Satisfactory Nausea/Vomiting: Absent Respiratory: Satisfactory Pain: Controlled Complications: Absent Post Op Complications Complications None Follow Up Care/Instructions Patient Instructions None needed. Anesthesiology Discharge Order Discharge Order Patient is doing well, no complaints, stable vital signs, no apparent adverse anesthesia problems. No complications reported per nursing. TAMMY KNAPP CRNA Apr 21, 2020 14:30
--- NOTE | 2020-04-22 12:30 | OPERATIVE REPORT ---
DATE OF SERVICE: 04/21/2020 PREOPERATIVE DIAGNOSES: End-stage liver disease, ascites and alcoholic cirrhosis. POSTOPERATIVE DIAGNOSES: End-stage liver disease, ascites and alcoholic cirrhosis. PROCEDURE: PleurX catheter placement. SURGEON: Rd Bower DO SOURCING ASSISTANT: Girish Garcia. ANESTHESIA: IV sedation by the DIRECTOR OF STATE. SPECIMEN: Ascitic fluid. BLOOD LOSS: Scant. FLUIDS: Per anesthesia. POSTOPERATIVE CONDITION: Stable. INDICATION FOR PROCEDURE: The patient is a 50-year-old female who unfortunately has end-stage liver disease with ascites due to alcoholic cirrhosis and has been having almost monthly paracentesis and now she is on hospice and needs a permanent catheter placed to drain to give her less pain. FINDINGS: The patient had a PleurX catheter placed left lower quadrant without any difficulty. PROCEDURE NOTE: After informed consent was obtained, the patient was brought to the operating room, placed on the operating table in supine position. She was sterilely prepped and draped in normal fashion. We then used a sterile cover on the ultrasound probe, looking left lower quadrant, could see where it had gone in before, there was a lot of fluid. So, at this point, we then infiltrated at this spot and then about 5 cm above it local lidocaine and then along the tract between the two, made a stab incision with #11 blade and then carefully tunneled from the upper incision into the lower incision, then using a needle and ultrasound, watched as the needle went into the abdomen, good flash of ascitic fluid, removed the needle. There was a catheter, placed guidewire down the catheter and then removed the catheter. Then over the guidewire using the Seldinger technique, placed the dilator and then pulled this out and then placed the second dilator with a sheath, then pulled the catheter through, removed the wire and the catheter sheath and the dilator and then placed the PleurX catheter through the sheath, went all the way in, then removed this sheath, then closed the lower incision with 3-0 Vicryl vertical mattress suture, sutured the catheter in place above, suturing to the skin and into the catheter and then tying the catheter down with a 3-0 silk Gabriel needle. At this point, we then hooked up to suction and got about 3500 out in the OR and then she was transferred to recovery to get the rest out. She tolerated the procedure. I could see the catheter in with the ultrasound. Sponge, instrument and needle count correct at the end of the case. Job ID: [id number] DocumentID: [id number] Dictated Date: 04/22/2020 10:09:29 Piece Goods Packer Date: 04/22/2020 12:29:42 Dictated By: RD BOWER DO
== END 2020-04-21 16:45 ==
LOC: SDC 10:28
PROVIDERS: ATTEND Surgery
DX: N18.6 End stage renal disease (principal); K70.31 Alcoholic cirrhosis of liver with ascites; K21.9 Gastro-esophageal reflux disease without esophagitis; Z79.899 Other long term (current) drug therapy; Z79.891 Long term (current) use of opiate analgesic; Z87.891 Personal history of nicotine dependence; Z99.2 Dependence on renal dialysis; Z80.9 Family history of malignant neoplasm, unspecified
CPT/HCPCS: 84703; 87081; 96365; 96366

== ENCOUNTER → 2020-04-26 | Outpatient (CLI) | payer MEDICAID ==
--- NOTE | 2020-04-26 12:22 | Diagnostic Imaging Report ---
INDICATION: Follow-up fracture. COMPARISON: 04/05/2020 FINDINGS: 3 radiographic views of the right shoulder were obtained and again show nonacute comminuted fractures of the right humeral head. Fracture fragments are in stable alignment. There may be some early bridging callus formation. Otherwise, fracture lines remain conspicuous. No new acute fracture or dislocation is identified. No unexpected radiopaque foreign bodies are seen. Included portions right hemithorax are clear. IMPRESSION: 1. Redemonstration nonacute fractures of the right humeral head. Dictated by: Dictated on workstation # [id number]
== END ==
LOC: RAD FS 10:14
PROVIDERS: ATTEND Nurse Practitioner
DX: S42.351D Displaced comminuted fracture of shaft of humerus, right arm, subsequent encounter for fracture with routine healing (principal); X58.XXXD Exposure to other specified factors, subsequent encounter
CPT/HCPCS: 73030